=== PATIENT | female | born 1995 | race Caucasian/White ===

== ENCOUNTER 2019-01-04 01:31 | Inpatient (IN) | payer OTHER ==
[2019-01-04] MEDS ORDERED: METHYLERGONOVINE 0.2 MG/ML 1 ML AMP IM PRN (01:55)
[2019-01-04] MEDS ORDERED: LIDOCAINE 0.5% (PF) 5 MG/ML (50 ML SDV) SQ PRN (01:55)
[2019-01-04] MEDS ORDERED: OXYTOCIN 10 UNIT/ML 1 ML VIAL IM PRN (01:55)
[2019-01-04] MEDS ORDERED: CARBOPROST TROMETHAMINE 250 MCG/ML 1 ML AMP IM PRN (01:55)
[2019-01-04] MEDS ORDERED: TERBUTALINE 1 MG/ML VIAL SQ PRN (01:55)
[2019-01-04] MEDS ORDERED: PENICILLIN G POTASSIUM 5,000,000 UNIT in DEXTROSE 5% IN WATER 100 ML IVPB ONE ×2 (02:00)
[2019-01-04] MEDS: LACTATED RINGERS 1,000 ML IV SCH ×3 (02:15→06:04)
[2019-01-04 02:17] LABS: Basophils # (A) 0.1 k/uL (0-0.2); Basophils % (A) 1 %; Eosinophils # (A) 0.2 k/uL (0-0.7); Eosinophils % (A) 1 %; HCT 36.9 % (34.0-46.0); HGB 12.9 gm/dL (11.4-16.0); Lymphocytes # (A) 1.9 k/uL (1.0-4.8); Lymphocytes % (A) 11 %; MCH 33.6 pg (25.0-35.0); MCHC 35.1 g/dL (31.0-37.0); MCV 95.8 fL (80.0-100.0); Monocytes # (A) 1.2 k/uL (0-1.0); Monocytes % (A) 7 %; Neutrophils # (A) 14.9 k/uL (1.3-7.7); Neutrophils % (A) 80 %; Platelet Count 283 k/uL (150-450); RBC 3.85 m/uL (3.80-5.40); RDW 12.4 % (11.5-15.5); WBC 18.5 k/uL (3.8-10.6)
[2019-01-04] MEDS ORDERED: fentaNYL (PF) 50 MCG/ML 5 ML AMP ONE (02:17)
[2019-01-04] MEDS ORDERED: SODIUM CHLORIDE 0.9% 100 ML BAG ONE (02:17)
[2019-01-04] MEDS ORDERED: ROPIVACAINE 5MG/ML 20ML VIAL ONE (02:17)
[2019-01-04 04:15] VITALS: BMI 31.5
[2019-01-04] MEDS ORDERED: diphenhydrAMINE 50 MG/ML 1 ML VIAL IVP PRN ×2 (06:31)
[2019-01-04] MEDS ORDERED: SIMETHICONE 80 MG CHEWABLE PO PRN (06:31)
[2019-01-04] MEDS ORDERED: WITCH HAZEL 1 EACH MED..PAD TOPICAL PRN (06:31)
[2019-01-04] MEDS ORDERED: diphenhydrAMINE 25 MG CAP PO PRN (06:31)
[2019-01-04] MEDS ORDERED: HYDROCORTISONE 2.5% RECTAL CREAM 30 GM TUBE RECTAL PRN (06:31)
[2019-01-04] MEDS ORDERED: LANOLIN CREAM 5 GM TUBE TOPICAL PRN (06:31)
[2019-01-04] MEDS ORDERED: ACETAMINOPHEN TAB 325 MG TAB PO PRN (06:31)
[2019-01-04] MEDS ORDERED: BENZOCAINE/MENTHOL SPRAY 1 GM/SPRAY AEROSOL TOPICAL PRN (06:31)
[2019-01-04] MEDS ORDERED: diphenhydrAMINE 50 MG CAP PO PRN (06:31)
[2019-01-04] MEDS ORDERED: ZOLPIDEM 5 MG TAB PO PRN (06:31)
--- NOTE | 2019-01-04 06:31 | P.PROBDLV ---
Vaginal Delivery Note - . Vaginal Delivery Note: Findings: Male infant in the left occiput anterior position with a nuchal cord 2. Thick terminal meconium. Apgars 7 at 1 minute 8 at 5 minutes. Weight 7 lbs. 5 oz. Intact, three-vessel cord placenta. EBL approximately 150 mL's. Second-degree perineal laceration. Delivery summary: This is a 23-year-old 1 para 0 woman who presented in spontaneous active labor at 38-2/7 weeks' gestation. Upon presentation she was 6+ centimeters dilated and did report leaking of fluid at home. Amnio sure was positive however she had a large bulging bag of membranes that was then artificially ruptured. Thick meconium-stained particulate fluid was noted. Patient's heart tones were category 2 throughout her first stage of labor with overall good variability but occasional episodes of variable decelerations. She received an epidural anesthetic and did progress to complete cervical dilation. She commenced pushing with excellent maternal effort. When she had pushed to she was repositioned, prepped and draped in the modified Zenaida position. With additional maternal effort the head delivered from the left occiput anterior position. Nuchal cord 2 was reduced. The rest the was delivered spontaneously onto the field and the had spontaneous gasp and cry. The nose and mouth were bulb suctioned. The cord was clamped and cut and the was taken to the warmer. The TECHNICAL PUBLICATIONS MANAGER was in attendance for delivery. Apgars were 7 at 1 minute and 8 at 5 minutes and the infant was ultimately taken to the nursery for some grunting and pulse ox in the 80s. The perineum of the patient was inspected and a second-degree laceration was noted. This was infused with lidocaine and repaired with 3-0 Vicryl suture. The rest of the vagina cervix and perineum were inspected no further lacerations were noted. The uterus was massaged and was noted to be firm below the level of the umbilicus. Patient received Pitocin following delivery of the placenta. All counts were correct.
[2019-01-04] MEDS ORDERED: OXYTOCIN 20 UNITS/1000 ML NS 1,000 ML IV SCH (06:45)
[2019-01-04] MEDS: PENICILLIN G POTASSIUM 2,500,000 UNIT in DEXTROSE 5% IN WATER 100 ML IVPB SCH ×2 (07:22)
--- NOTE | 2019-01-04 07:32 | HP ---
HISTORY AND PHYSICAL DATE OF ADMISSION: 01/04/2019. HISTORY: This is a 23-year-old 1, para 0 woman with an estimated due date of 01/14/2019 based on LMP consistent with a 2nd trimester ultrasound. She presents at 38 and 2/7 weeks gestation in spontaneous active labor. She reports the onset of contractions at approximately 11:30 pm with some leakage of clear fluid. On presentation to Labor and Delivery triage, she is found to be 6 cm dilated. AmniSure was positive. However, the nurse reports a large 4 bag palpable in front of the vertex. The patient is known group B strep positive. Her has been otherwise uncomplicated. LABORATORY DATA: Blood type A positive, antibody screen negative, rubella immune, VDRL nonreactive, hepatitis B surface antigen negative, HIV negative, gonorrhea and chlamydia cultures negative. Diabetes screening within normal limits. Group B strep positive. ALLERGY: None. MEDICATIONS: vitamins. PAST MEDICAL HISTORY: None. PAST SURGICAL HISTORY: None. TIPPLE ENGINEER PAST HISTORY: She is a 1. SOCIAL HISTORY: Former smoker. She is single. The father of the baby is not involved. FAMILY HISTORY: Noncontributory. PHYSICAL EXAM: Targeted physical examination is performed on my initial evaluation. The patient is 9 cm dilated with large fore bag which is ruptured. Thick meconium stained fluid is noted. heart tones are category 2 with good variability and intermittent variable appearing decelerations. She is wilfredo spontaneously every 1-3 minutes. ASSESSMENT: A 23-year-old 1 at 38 2/7 weeks gestation with spontaneous active labor. Meconium stained fluid. Group B strep positive. Prophylactic antibiotics have been initiated. status is currently overall reassuring. She has an epidural in place and I anticipate normal spontaneous vaginal delivery. MMODL / IJN: [id number] /
[2019-01-04] MEDS: IBUPROFEN 600 MG TAB PO PRN ×2 (08:06→19:03)
[2019-01-04] MEDS: SENNOSIDES-DOCUSATE SODIUM 1 EACH TAB PO SCH ×2 (19:12→19:24)
[2019-01-05] MEDS: SENNOSIDES-DOCUSATE SODIUM 1 EACH TAB PO SCH ×2 (07:40→20:01)
[2019-01-05 07:57] LABS: Basophils # (A) 0.1 k/uL (0-0.2); Basophils % (A) 1 %; Eosinophils # (A) 0.3 k/uL (0-0.7); Eosinophils % (A) 2 %; HCT 31.8 % (34.0-46.0); Lymphocytes # (A) 2.5 k/uL (1.0-4.8); Lymphocytes % (A) 21 %; MCH 33.9 pg (25.0-35.0); MCHC 34.4 g/dL (31.0-37.0); MCV 98.5 fL (80.0-100.0); Mean Platelet Volume 7.1; Monocytes # (A) 0.8 k/uL (0-1.0); Monocytes % (A) 7 %; Neutrophils # (A) 8.1 k/uL (1.3-7.7); Neutrophils % (A) 68 %; Platelet Count 247 k/uL (150-450); RBC 3.23 m/uL (3.80-5.40); RDW 12.6 % (11.5-15.5); WBC 11.9 k/uL (3.8-10.6)
[2019-01-05] MEDS: LACTATED RINGERS 1,000 ML IV SCH (08:08)
[2019-01-05] MEDS: PENICILLIN G POTASSIUM 2,500,000 UNIT in DEXTROSE 5% IN WATER 100 ML IVPB SCH ×4 (08:08→08:09)
[2019-01-05] MEDS: IBUPROFEN 600 MG TAB PO PRN ×2 (09:45→20:00)
--- NOTE | 2019-01-05 09:54 | P.PNOBGVD ---
Subjective - Subjective Principal diagnosis: PPD 1 Interval history: Pt ti s doing well . she is ambulating and voiding without difficulty, she notes lochia to be moderate, and she is pumping as her infant is in the special care nursery. she denies pain and states she is doing well. Objective - Latest Vital Signs Latest vital signs: Vital Signs Temp Pulse Resp BP 01/05/19 07:45 97.9 F 83 18 108/59 01/05/19 00:00 98.2 F 80 16 121/85 01/04/19 19:30 98.2 F 88 16 130/76 01/04/19 16:00 98.2 F 82 16 108/64 01/04/19 12:30 97.7 F 85 16 124/74 Intake and Output 01/04/19 01/05/19 01/05/19 22:59 06:59 14:59 Other: Voiding Method Toilet # Voids 1 2 - Exam Abdomen: Present: normal appearance, soft Uterus: Present: normal, firm - Labs Labs: Abnormal Lab Results - Last 24 Hours (Table) 01/05/19 Range/Units 06:20 WBC 11.9 H (3.8-10.6) k/uL RBC 3.23 L (3.80-5.40) m/uL Hgb 11.0 L (11.4-16.0) gm/dL Hct 31.8 L (34.0-46.0) % Neutrophils # 8.1 H (1.3-7.7) k/uL Assessment and Plan (1) Term Current Visit: Yes Status: Acute Code(s): Z34.90 - ENCNTR FOR SUPRVSN OF N ORMAL , UNSP, UNSP TRIMESTER SNOMED Code(s): 69760688 (2) Meconium stained amniotic fluid, delivered, current hospitalization Current Visit: Yes Status: Acute Code(s): O77.0 - LABOR AND DELIVERY COMPLICATED BY MECONIUM IN AMNIOTIC FLUID SNOMED Code(s): 230278472 (3) Status post vaginal delivery Current Visit: Yes Status: Acute Code(s): NEE7815 - SNOMED Code(s): 113737893 Plan: plan to continue routine PP care, and anticipate discharge home tomorrow.
[2019-01-05 23:50] VITALS: RESP 16
[2019-01-06] MEDS: IBUPROFEN 600 MG TAB PO PRN ×2 (06:25→18:20)
[2019-01-06] MEDS: SENNOSIDES-DOCUSATE SODIUM 1 EACH TAB PO SCH (11:46)
--- NOTE | 2019-01-06 13:30 | P.DS ---
Providers Date of admission: 01/04/19 01:47 Expected date of discharge: 01/06/19 Attending physician: Luciana Lombardo Primary care physician: Luciana Lombardo - Discharge Diagnosis(es) (1) Term Current Visit: Yes Status: Acute (2) Meconium stained amniotic fluid, delivered, current hospitalization Current Visit: Yes Status: Acute (3) Status post vaginal delivery Current Visit: Yes Status: Acute Hospital Course: This is a pleasant 23-year-old 1 para 000 that presented to labor and delivery at 38-2/7 weeks with complaints of regular painful contractions. Patient was admitted to labor and delivery and antibiotics were started. Patient had spontaneous rupture of membranes at 0115 thick meconium was noted. Patient became uncomfortable eventually getting an epidural. Patient pressed to complete began pushing and had a normal spontaneous vaginal delivery of a viable male infant at 554, weight of 7 lbs. 8 oz. with Apgars of 7 and 8 at one and 5 minutes respectively. Patient was noted to have some respiratory distress therefore was taken to the special care nursery. A second-degree midline laceration was noted after delivery and this was repaired in the usual fashion. Patient's post course has been uneventful. On this day #2 she is ambulating and voiding without difficulty. She is tolerating a regular diet without nausea or vomiting. She states she is feeling well and ready for discharge home. Of note the is to stay additional days here in the special care nursery. Patient Condition at Discharge: Good Plan - Discharge Summary New Discharge Prescriptions: No Action Pnv No.95/Ferrous Fum/Folic AC [ Multivitamin Tablet] 1 tab PO DAILY Discharge Medication List Pnv No.95/Ferrous Fum/Folic AC [ Multivitamin Tablet] 1 tab PO DAILY 01/04/19 [History] Follow up Appointment(s)/Referral(s): Luciana Lombardo DO [Primary Care Provider] - 1 Week Patient Instructions/Handouts: Vaginal Delivery (GEN), Vaginal Delivery (DC) Discharge Disposition: HOME SELF-CARE
[2019-01-06 18:54] VITALS: BP 127/87; PULSE 86; TEMP 98.4
== END 2019-01-06 20:00 | disposition home or self-care (01) | DRG 807 ==
LOC: FBPOP 01:31 → 4FBP 01:47
PROVIDERS: ADMIT Obstetrics & Gynecology; ATTEND Obstetrics & Gynecology Obstetrics
PROC: 10E0XZZ Delivery of Products of Conception, External Approach (ICD-10-PCS; principal; 2019-01-04)
PROC: 0KQM0ZZ Repair Perineum Muscle, Open Approach (ICD-10-PCS; 2019-01-04)
PROC: 00HU33Z Insertion of Infusion Device into Spinal Canal, Percutaneous Approach (ICD-10-PCS; 2019-01-04)
PROC: 3E0R3BZ Introduction of Anesthetic Agent into Spinal Canal, Percutaneous Approach (ICD-10-PCS; 2019-01-04)
DX: O69.81X0 Labor and delivery complicated by cord around neck, without compression, not applicable or unspecified (principal); Z37.0 Single live birth; O77.0 Labor and delivery complicated by meconium in amniotic fluid; O99.824 Streptococcus B carrier state complicating childbirth; O76 Abnormality in fetal heart rate and rhythm complicating labor and delivery; O70.1 Second degree perineal laceration during delivery; O99.62 Diseases of the digestive system complicating childbirth; K21.9 Gastro-esophageal reflux disease without esophagitis; Z3A.38 38 weeks gestation of pregnancy; Z87.891 Personal history of nicotine dependence
CPT/HCPCS: 59025; 84112; 85025; 86850; 86900; 86901; 88307; 99213

== ENCOUNTER 2020-05-28 11:58 | Inpatient (IN) | payer OTHER ==
[2020-05-28] MEDS ORDERED: KETOROLAC 15 MG/ML 1 ML VIAL IVP STA (12:26)
[2020-05-28] MEDS ORDERED: SODIUM CHLORIDE 0.9% 1,000 ML IV STA (12:26)
[2020-05-28] MEDS ORDERED: ONDANSETRON 4 MG/2 ML VIAL IVP STA (12:26)
[2020-05-28 12:42] LABS: Basophils # (A) 0.1 k/uL (0-0.2); Basophils % (A) 1 %; Eosinophils # (A) 0.2 k/uL (0-0.7); Eosinophils % (A) 2 %; HCT 45.7 % (34.0-46.0); HGB 15.6 gm/dL (11.4-16.0); Lymphocytes # (A) 1.1 k/uL (1.0-4.8); Lymphocytes % (A) 11 %; MCH 33.3 pg (25.0-35.0); MCHC 34.1 g/dL (31.0-37.0); MCV 97.6 fL (80.0-100.0); Mean Platelet Volume 6.5; Monocytes # (A) 0.6 k/uL (0-1.0); Monocytes % (A) 6 %; Neutrophils # (A) 7.8 k/uL (1.3-7.7); Neutrophils % (A) 80 %; Platelet Count 328 k/uL (150-450); RBC 4.68 m/uL (3.80-5.40); RDW 12.2 % (11.5-15.5); WBC 9.7 k/uL (3.8-10.6)
[2020-05-28 12:51] LABS: ALT 640 U/L (4-34); African American GFR (CKD) >90 (>60 ml/min/1.73 sqM); Albumin 4.7 g/dL (3.5-5.0); Alkaline Phosphatase 130 U/L (38-126); Anion Gap 7 mmol/L; Blood Urea Nitrogen 10 mg/dL (7-17); Calcium 10.1 mg/dL (8.4-10.2); Carbon Dioxide 29 mmol/L (22-30); Chloride 104 mmol/L (98-107); Glucose 97 mg/dL (74-99); Lipase 309 U/L (23-300); Non-African American GFR(CKD) >90 (>60 ml/min/1.73 sqM); Potassium 4.3 mmol/L (3.5-5.1); Sodium 140 mmol/L (137-145); Total Bilirubin 2.8 mg/dL (0.2-1.3)
[2020-05-28 13:36] LABS: AST 1087 U/L (14-36)
--- NOTE | 2020-05-28 14:05 | US ---
EXAMINATION TYPE: US gallbladder DATE OF EXAM: 05/28/2020 COMPARISON: NONE CLINICAL HISTORY: abd pain. RUQ pain and N/V x 1 day EXAM MEASUREMENTS: Liver Length: 15.8 cm Gallbladder Wall: 0.2 cm CBD: 0.9 cm Right Kidney: 10.1 x 4.1 x 5.2 cm Pancreas: visualized portions wnl, tail obscured by overlying midline bowel gas Liver: wnl Gallbladder: borderline hydropic, wall measures wnl, multiple small echogenic foci within neck, no p ericholecystic fluid seen Evidence for sonographic Woody's sign: yes CBD: dilated Right Kidney: wnl IMPRESSION: Distended gallbladder with stones and reported positive sonographic Woody's sign. No significant gal lbladder wall thickening or pericholecystic fluid. Findings are equivocal for acute cholecystitis. 0.9 cm dilated common bile duct.
[2020-05-28 14:10] LABS: Appearance,Urine Cloudy (Clear); Bacteria,Urine Rare /hpf; Bilirubin,Urine 2+ (Negative); Blood,Urine Negative (Negative); Color,Urine Orange; Glucose,Urine (UA) Negative (Negative); Ketones,Urine Negative (Negative); Leukocyte Esterase,Urine Negative (Negative); Mucus,Urine Few /hpf; Nitrite,Urine Negative (Negative); Protein,Urine Trace (Negative); RBC,Urine 2 /hpf (0-5); Specific Gravity,Urine 1.027 (1.001-1.035); Squamous Epithelial Cell,Urine 46 /hpf (0-4); WBC,Urine 2 /hpf (0-5)
[2020-05-28] MEDS ORDERED: ACETAMINOPHEN IV (For NPO) 1,000 MG in EMPTY BAG 1 BAG IVPB STA (14:37)
--- NOTE | 2020-05-28 14:41 | ED ---
Abdominal Pain HPI - General Chief Complaint: Abdominal Pain Stated Complaint: stomach pain Time Seen by Provider: 05/28/20 12:05 Source: patient Mode of arrival: ambulatory Limitations: no limitations - History of Present Illness Initial Comments: 25-year-old previously healthy female presents emergency department with reported epigastric abdominal pain. Patient ate deep-fried fish last night for dinner and began having right upper quadrant abdominal pain. Had a few episodes of nausea with vomiting. Denies hematemesis. No fevers or chills. No sick contacts with similar symptoms. Denies any pain that radiates to her back. No chest pain or shortness of breath. Does admit to similar pain in the past however denies having previous workup. No vaginal bleeding or discharge. Last menstrual cycle was one month ago. Denies dysuria, hematuria or difficulty voiding. No diarrhea or constipation. No other alleviating, precipitating or modifying factors - Related Data Home Medications Medication Instructions Recorded Confirmed No Known Home Medications 05/28/20 05/28/20 Allergies Allergy/AdvReac Type Severity Reaction Status Date / Time No Known Allergies Allergy Verified 05/28/20 13:34 Review of Systems ROS Statement: Those systems with pertinent positive or pertinent negative responses have been documented in the HPI. ROS Other: All systems not noted in ROS Statement are negative. Past Medical History Past Medical History: No Reported History History of Any Multi-Drug Resistant Organisms: None Reported Past Surgical History: No Surgical Hx Reported Past Anesthesia/Blood Transfusion Reactions: No Reported Reaction Past Psychological History: No Psychological Hx Reported Smoking Status: Current every day smoker Past Alcohol Use History: Occasional Past Drug Use History: None Reported - Past Family History Mother Family Medical History: Asthma Father Family Medical History: Cancer General Exam Limitations: no limitations Course Vital Signs 05/28/20 05/28/20 05/28/20 12:03 13:04 13:50 Temperature 98.5 F Pulse Rate 83 87 Respiratory 20 18 18 Rate Blood Pressure 123/77 125/77 O2 Sat by Pulse 100 100 Oximetry 05/28/20 05/28/20 14:00 15:00 Temperature Pulse Rate 87 Respiratory 18 18 Rate Blood Pressure 108/62 O2 Sat by Pulse 100 100 Oximetry Medical Decision Making - Medical Decision Making Upon arrival patient is placed in room 19. A thorough history and physical exam was performed. IV is established. Patient was given a liter bolus of normal saline, 4 mg of Zofran and 15 mg of Toradol. Laboratory studies were conducted an echo Doppler ultrasound is performed. Laboratory studies are reviewed and demonstrate elevated liver enzymes. Ultrasound was performed which demonstrates distended call bladder with stones. 0.9 cm dilated bile duct. Because of the patient's test results, there is concern for choledocholithiasis. I do speak with Dr. Izquierdo who states that the patient will be admitted for her evaluation. I spoke with Dr. Randolph who accepted admission for the patient. She will be made nothing by mouth at midnight. Patient agreed to this treatment plan and she is currently awaiting a bed on the floor - Lab Data Result diagrams: 05/28/20 12:39 05/28/20 12:39 Lab Results 05/28/20 05/28/20 05/28/20 Range/Units 12:39 12:39 13:43 WBC 9.7 (3.8-10.6) k/uL RBC 4.68 (3.80-5.40) m/uL Hgb 15.6 (11.4-16.0) gm/dL Hct 45.7 (34.0-46.0) % MCV 97.6 (80.0-100.0) fL MCH 33.3 (25.0-35.0) pg MCHC 34.1 (31.0-37.0) g/dL RDW 12.2 (11.5-15.5) % Plt Count 328 (150-450) k/uL MPV 6.5 Neutrophils % 80 % Lymphocytes % 11 % Monocytes % 6 % Eosinophils % 2 % Basophils % 1 % Neutrophils # 7.8 H (1.3-7.7) k/uL Lymphocytes # 1.1 (1.0-4.8) k/uL Monocytes # 0.6 (0-1.0) k/uL Eosinophils # 0.2 (0-0.7) k/uL Basophils # 0.1 (0-0.2) k/uL Sodium 140 (137-145) mmol/L Potassium 4.3 (3.5-5.1) mmol/L Chloride 104 (98-107) mmol/L Carbon Dioxide 29 (22-30) mmol/L Anion Gap 7 mmol/L BUN 10 (7-17) mg/dL Creatinine 0.75 (0.52-1.04) mg/dL Est GFR (CKD-EPI)AfAm >90 (>60 ml/min/1.73 sqM) Est GFR (CKD-EPI)NonAf >90 (>60 ml/min/1.73 sqM) Glucose 97 (74-99) mg/dL Calcium 10.1 (8.4-10.2) mg/dL Total Bilirubin 2.8 H (0.2-1.3) mg/dL AST 1087 H (14-36) U/L ALT 640 H (4-34) U/L Alkaline Phosphatase 130 H (38-126) U/L Total Protein 8.0 (6.3-8.2) g/dL Albumin 4.7 (3.5-5.0) g/dL Lipase 309 H (23-300) U/L Urine Color [place] Urine Appearance Cloudy H (Clear) Urine pH 7.0 (5.0-8.0) Ur Specific [place] 1.027 (1.001-1.035) Urine Protein Trace H (Negative) Urine Glucose (UA) Negative (Negative) Urine Ketones Negative (Negative) Urine Blood Negative (Negative) Urine Nitrite Negative (Negative) Urine Bilirubin 2+ H (Negative) Urine Urobilinogen 4.0 (<2.0) mg/dL Ur Leukocyte Esterase Negative (Negative) Urine RBC 2 (0-5) /hpf Urine WBC 2 (0-5) /hpf Ur Squamous Epith Cells 46 H (0-4) /hpf Urine Bacteria Rare H (None) /hpf Urine Mucus Few H (None) /hpf Urine HCG, Qual (Not Detectd) 05/28/20 Range/Units 13:43 WBC (3.8-10.6) k/uL RBC (3.80-5.40) m/uL Hgb (11.4-16.0) gm/dL Hct (34.0-46.0) % MCV (80.0-100.0) fL MCH (25.0-35.0) pg MCHC (31.0-37.0) g/dL RDW (11.5-15.5) % Plt Count (150-450) k/uL MPV Neutrophils % % Lymphocytes % % Monocytes % % Eosinophils % % Basophils % % Neutrophils # (1.3-7.7) k/uL Lymphocytes # (1.0-4.8) k/uL Monocytes # (0-1.0) k/uL Eosinophils # (0-0.7) k/uL Basophils # (0-0.2) k/uL Sodium (137-145) mmol/L Potassium (3.5-5.1) mmol/L Chloride (98-107) mmol/L Carbon Dioxide (22-30) mmol/L Anion Gap mmol/L BUN (7-17) mg/dL Creatinine (0.52-1.04) mg/dL Est GFR (CKD-EPI)AfAm (>60 ml/min/1.73 sqM) Est GFR (CKD-EPI)NonAf (>60 ml/min/1.73 sqM) Glucose (74-99) mg/dL Calcium (8.4-10.2) mg/dL Total Bilirubin (0.2-1.3) mg/dL AST (14-36) U/L ALT (4-34) U/L Alkaline Phosphatase (38-126) U/L Total Protein (6.3-8.2) g/dL Albumin (3.5-5.0) g/dL Lipase (23-300) U/L Urine Color Urine Appearance (Clear) Urine pH (5.0-8.0) Ur Specific [place] (1.001-1.035) Urine Protein (Negative) Urine Glucose (UA) (Negative) Urine Ketones (Negative) Urine Blood (Negative) Urine Nitrite (Negative) Urine Bilirubin (Negative) Urine Urobilinogen (<2.0) mg/dL Ur Leukocyte Esterase (Negative) Urine RBC (0-5) /hpf Urine WBC (0-5) /hpf Ur Squamous Epith Cells (0-4) /hpf Urine Bacteria (None) /hpf Urine Mucus (None) /hpf Urine HCG, Qual Not Detected (Not Detectd) Disposition Clinical Impression: Abdominal pain, Transaminitis, Choledocholithiasis, Cholelithiasis Disposition: ADMITTED IP TO THIS [facility] Condition: Serious Is patient prescribed a controlled substance at d/c from ED?: No Decision to Admit Reason: Admit from EC Decision Date: 05/28/20 Decision Time: 14:40
[2020-05-28] MEDS ORDERED: ONDANSETRON 4 MG/2 ML VIAL IVP PRN (14:46)
[2020-05-28] MEDS ORDERED: KETOROLAC 15 MG/ML 1 ML VIAL IVP PRN (14:46)
[2020-05-28] MEDS ORDERED: NALOXONE 0.4 MG/ML 1 ML VIAL IV PRN (14:46)
[2020-05-28] MEDS: SODIUM CHLORIDE 0.9% 1,000 ML IV SCH (15:16)
[2020-05-28] MEDS ORDERED: ACETAMINOPHEN TAB 500 MG TAB PO PRN (15:35)
[2020-05-28] MEDS ORDERED: HYDROmorphone 0.5 MG/0.5 ML SYRINGE IVP PRN (15:35)
[2020-05-28] MEDS ORDERED: ALPRAZolam 0.25 MG TAB PO PRN (15:35)
[2020-05-28] MEDS ORDERED: TEMAZEPAM 15 MG CAP PO PRN (15:35)
[2020-05-28] MEDS: IOPAMIDOL CONTRAST (ORAL USE) VIAL PO PRN ×2 (18:15→18:44)
[2020-05-28] MEDS: NICOTINE 14MG/24HR PATCH TRANSDERM SCH (18:47)
[2020-05-28 19:00] LABS: Appearance,Urine Cloudy (Clear); Bilirubin,Urine 2+ (Negative); Blood,Urine Negative (Negative); Color,Urine Orange; Glucose,Urine (UA) Negative (Negative); Ketones,Urine Negative (Negative); Leukocyte Esterase,Urine Negative (Negative); Mucus,Urine Many /hpf; Nitrite,Urine Negative (Negative); Protein,Urine 1+ (Negative); Specific Gravity,Urine 1.044 (1.001-1.035); Squamous Epithelial Cell,Urine 16 /hpf (0-4); WBC,Urine 2 /hpf (0-5)
[2020-05-28] MEDS: HYDROcodone/APAP 5-325MG 1 EACH TAB PO PRN (19:41)
[2020-05-28] MEDS: HEPARIN SODIUM,PORCINE 5,000 UNIT/ML 1 ML VIAL SQ SCH (19:42)
--- NOTE | 2020-05-28 20:05 | CT ---
EXAMINATION TYPE: CT abdomen pelvis wo con DATE OF EXAM: 05/28/2020 COMPARISON: Same-day ultrasound. HISTORY: abdominal pain CT DLP: 389.3 mGycm Automated exposure control for dose reduction was used. TECHNIQUE: Helical acquisition of images was performed from the lung bases through the pelvis. FINDINGS: LUNG BASES: No significant abnormality is appreciated. LIVER/GB: Gallstone at the gallbladder neck. No significant gallbladder wall thickening or pericholec ystic fluid. No significant biliary ductal dilatation. PANCREAS: No significant abnormality is seen. SPLEEN: No significant abnormality is seen. ADRENALS: No significant abnormality is seen. KIDNEYS: No significant abnormality is seen. FREE AIR: No free air is visualized RETROPERITONEAL ADENOPATHY: None visualized REPRODUCTIVE ORGANS: No acute abnormality is seen. Retroflexed uterus is seen. URINARY BLADDER: No significant abnormality is seen. PELVIC ADENOPATHY: None visualized. OSSEOUS STRUCTURES: No significant abnormality is seen. BOWEL: No significant abnormality is seen. OTHER: None. IMPRESSION: GALLSTONE IN THE GALLBLADDER NECK REGION WITHOUT SIGNIFICANT FINDINGS TO SUGGEST ACUTE CHOLECYSTITIS. NO SIGNIFICANT BILIARY DUCTAL DILATATION. PROMINENT COMMON BILE DUCT SEEN ON ULTRASOUND, MOST LIK JENNIFER PROJECTIONAL ARTIFACT.
--- NOTE | 2020-05-28 20:21 | HP ---
HISTORY AND PHYSICAL DATE OF SERVICE: 05/28/2020. CHIEF COMPLAINT: Abdominal pain. HISTORY OF PRESENT ILLNESS: This 25-year-old woman with a past medical history of no significant medical issues, being followed by Dr. Valentine in the outpatient setting, is complaining of abdominal pain. The pain began last night with dinner in the right upper quadrant and moved to the epigastric area. There were a few episodes of nausea and vomiting. The patient came to [facility] and was admitted for further evaluation and treatment. The evaluation in the ER today showed elevated bilirubin and AST and ALT and alkaline phosphatase and lipase also elevated. UA showed some bilirubin. The patient also had a gallbladder ultrasound which showed the possibility of distended gallbladder and stones and sonographic Woody sign was also noted. No significant gallbladder wall thickening was noted. There is no history of fever, rigors. No history of headache, loss of consciousness of seizures. PAST MEDICAL HISTORY: No significant cardiovascular illness. MEDICATIONS: None. ALLERGIES: None. FAMILY HISTORY: No history of heart disease. History of asthma in the family. SOCIAL HISTORY: History of smoking. Occasional alcohol. REVIEW OF SYSTEMS: ENT: No diminished vision. No diminished hearing. CARDIOVASCULAR: No angina. RESPIRATION: No cough. No hemoptysis. GI: As mentioned earlier. no dysuria. NERVOUS SYSTEM: No numbness, weakness. ALLERGY/IMMUNOLOGY: No asthma or hayfever. MUSCULOSKELETAL: History of DJD. NEUROLOGY: Negative. HEMATOLOGY/ONCOLOGY: No history of anemia. ENDOCRINE: No history of diabetes or hypothyroidism. CONSTITUTIONAL: As mentioned earlier. DERMATOLOGY: Negative. RHEUMATOLOGY: Negative. PSYCHIATRY is negative. PHYSICAL EXAMINATION: Alert and oriented times three. Pulse 87. Blood pressure 108/62, respiration 18, temperature 98.5. Pulse ox 100 percent on room air. HEENT: Conjunctivae normal. Oral mucosa moist. NECK is no jugular venous distention. No carotid bruit. No lymph node enlargement. CARDIOVASCULAR system: S1, S2. No S3, no S4. RESPIRATORY: Breath sounds diminished in the bases. No rhonchi. No crackles. ABDOMEN: Soft. Mild diffuse tenderness in the epigastrium. No mass palpable. LEGS: No edema. No swelling. NERVOUS SYSTEM: Higher functions as mentioned earlier. Moves all 4 limbs. No focal motor or sensory deficits. LYMPHATICS: No lymph nodes palpable in the neck, axillae or groin. SKIN: No ulcers, rashes or bleeding. JOINTS: No active deforming arthropathy. LABS: CBC within normal limits. Bilirubin 2.8, AST, ALT. Other labs are noted. ASSESSMENT: 1. Abdominal pain possibly acute cholelithiasis, rule out acute cholecystitis. 2. Possible mild gallstone pancreatitis. 3. Possible choledocholithiasis. 4. History of nicotine dependence. 5. FULL CODE. CONDITION: In this 25-year-old woman who presented with multiple complex medical issues, at this time, I recommend to continue current management, symptomatic treatment. Repeat labs in the morning. I would also recommend a CT scan of the abdomen and pelvis. Gastroenterology and surgery evaluation for possible ERCP to rule out the possibly choledocholithiasis. The prognosis guarded because of multiple complex medical issues. See orders for details. Further recommendations to follow. A copy of dictation being forwarded to Dr. Valentine, who is the primary physician. MMODL / EVERN: [id number] /
[2020-05-29] MEDS: SODIUM CHLORIDE 0.9% 1,000 ML IV SCH ×3 (01:35→20:40)
[2020-05-29 08:22] LABS: African American GFR (CKD) >90 (>60 ml/min/1.73 sqM); Albumin 3.4 g/dL (3.5-5.0); Alkaline Phosphatase 144 U/L (38-126); Amylase 32 U/L (30-110); Anion Gap 2 mmol/L; Blood Urea Nitrogen 5 mg/dL (7-17); Calcium 8.9 mg/dL (8.4-10.2); Carbon Dioxide 28 mmol/L (22-30); Chloride 108 mmol/L (98-107); Glucose 97 mg/dL (74-99); Lipase 129 U/L (23-300); Non-African American GFR(CKD) >90 (>60 ml/min/1.73 sqM); Potassium 5.3 mmol/L (3.5-5.1); Sodium 138 mmol/L (137-145); Total Bilirubin 2.9 mg/dL (0.2-1.3); Total Protein 6.2 g/dL (6.3-8.2)
[2020-05-29 08:30] LABS: Basophils % (A) 1 %; Eosinophils # (A) 0.3 k/uL (0-0.7); Eosinophils % (A) 5 %; HCT 40.2 % (34.0-46.0); HGB 13.2 gm/dL (11.4-16.0); Lymphocytes # (A) 1.5 k/uL (1.0-4.8); Lymphocytes % (A) 30 %; MCH 32.5 pg (25.0-35.0); MCHC 32.8 g/dL (31.0-37.0); MCV 99.1 fL (80.0-100.0); Mean Platelet Volume 6.8; Monocytes # (A) 0.3 k/uL (0-1.0); Monocytes % (A) 7 %; Neutrophils # (A) 2.7 k/uL (1.3-7.7); Neutrophils % (A) 56 %; Platelet Count 262 k/uL (150-450); RBC 4.05 m/uL (3.80-5.40); RDW 12.7 % (11.5-15.5); WBC 4.9 k/uL (3.8-10.6)
[2020-05-29 08:33] LABS: ALT 1192 U/L (4-34); AST 1016 U/L (14-36)
[2020-05-29] MEDS: PANTOPRAZOLE 40 MG/10 ML VIAL IVP SCH (08:34)
[2020-05-29] MEDS: NICOTINE 14MG/24HR PATCH TRANSDERM SCH (08:34)
[2020-05-29] MEDS: HEPARIN SODIUM,PORCINE 5,000 UNIT/ML 1 ML VIAL SQ SCH ×2 (08:34→21:22)
--- NOTE | 2020-05-29 14:03 | P.GSCN ---
History of Present Illness Consult date: 05/29/20 Reason for Consult: Right upper quadrant pain History of present illness: This is a 25-year-old female who since emergency room with right quadrant pain. Patient's found have elevated LFTs consistent with choledocholithiasis. Patient is currently pain-free. Past Medical History Past Medical History: No Reported History History of Any Multi-Drug Resistant Organisms: None Reported Past Surgical History: No Surgical Hx Reported Past Anesthesia/Blood Transfusion Reactions: No Reported Reaction Past Psychological History: No Psychological Hx Reported Smoking Status: Current every day smoker Past Alcohol Use History: Occasional Past Drug Use History: None Reported - Past Family History Mother Family Medical History: Asthma Father Family Medical History: Cancer Medications and Allergies Home Medications Medication Instructions Recorded Confirmed Type No Known Home Medications 05/28/20 05/28/20 History Allergies Allergy/AdvReac Type Severity Reaction Status Date / Time No Known Allergies Allergy Verified 05/28/20 16:39 Surgical - Exam Vital Signs Temp Pulse Resp BP Pulse Ox 98.5 F 83 20 123/77 100 05/28/20 12:03 05/28/20 12:03 05/28/20 12:03 05/28/20 12:03 05/28/20 12:03 - General well developed, well nourished, no distress - Eyes PERRL - ENT normal pinna, normal nares, normal mucosa - Neck no masses - Respiratory normal expansion - Cardiovascular Rhythm: regular - Abdomen Mild right upper quadrant tenderness Abdomen: soft Results - Labs 05/29/20 07:09 05/29/20 07:09 Abnormal Lab Results - Last 24 Hours (Table) 05/28/20 05/28/20 05/29/20 Range/Units 13:43 18:50 07:09 Potassium 5.3 H (3.5-5.1) mmol/L Chloride 108 H (98-107) mmol/L BUN 5 L (7-17) mg/dL Total Bilirubin 2.9 H (0.2-1.3) mg/dL AST 1016 H (14-36) U/L ALT 1192 H (4-34) U/L Alkaline Phosphatase 144 H (38-126) U/L Total Protein 6.2 L (6.3-8.2) g/dL Albumin 3.4 L (3.5-5.0) g/dL Urine Appearance Cloudy H Cloudy H (Clear) Ur Specific [place] 1.044 H (1.001-1.035) Urine Protein Trace H 1+ H (Negative) Urine Bilirubin 2+ H 2+ H (Negative) Ur Squamous Epith Cells 46 H 16 H (0-4) /hpf Urine Bacteria Rare H (None) /hpf Urine Mucus Few H Many H (None) /hpf Diabetes panel 05/29/20 Range/Units 07:09 Sodium 138 (137-145) mmol/L Potassium 5.3 H (3.5-5.1) mmol/L Chloride 108 H (98-107) mmol/L Carbon Dioxide 28 (22-30) mmol/L BUN 5 L (7-17) mg/dL Creatinine 0.71 (0.52-1.04) mg/dL Glucose 97 (74-99) mg/dL Calcium 8.9 (8.4-10.2) mg/dL AST 1016 H (14-36) U/L ALT 1192 H (4-34) U/L Alkaline Phosphatase 144 H (38-126) U/L Total Protein 6.2 L (6.3-8.2) g/dL Albumin 3.4 L (3.5-5.0) g/dL Calcium panel 05/29/20 Range/Units 07:09 Calcium 8.9 (8.4-10.2) mg/dL Albumin 3.4 L (3.5-5.0) g/dL Pituitary panel 05/29/20 Range/Units 07:09 Sodium 138 (137-145) mmol/L Potassium 5.3 H (3.5-5.1) mmol/L Chloride 108 H (98-107) mmol/L Carbon Dioxide 28 (22-30) mmol/L BUN 5 L (7-17) mg/dL Creatinine 0.71 (0.52-1.04) mg/dL Glucose 97 (74-99) mg/dL Calcium 8.9 (8.4-10.2) mg/dL Adrenal panel 05/29/20 Range/Units 07:09 Sodium 138 (137-145) mmol/L Potassium 5.3 H (3.5-5.1) mmol/L Chloride 108 H (98-107) mmol/L Carbon Dioxide 28 (22-30) mmol/L BUN 5 L (7-17) mg/dL Creatinine 0.71 (0.52-1.04) mg/dL Glucose 97 (74-99) mg/dL Calcium 8.9 (8.4-10.2) mg/dL Total Bilirubin 2.9 H (0.2-1.3) mg/dL AST 1016 H (14-36) U/L ALT 1192 H (4-34) U/L Alkaline Phosphatase 144 H (38-126) U/L Total Protein 6.2 L (6.3-8.2) g/dL Albumin 3.4 L (3.5-5.0) g/dL - Imaging US - abdomen: report reviewed (Cholelithiasis) Assessment and Plan Assessment: Cholelithiasis. We'll perform laparoscopic cholecystectomy. Patient will undergo ERCP tomorrow.
--- NOTE | 2020-05-29 16:53 | PN ---
PROGRESS NOTE DATE OF SERVICE: 05/29/2020 This is a 25-year-old woman who was admitted with abdominal pain and also had possible choledocholithiasis. Dr. Mann is planning ERCP tomorrow. Dr. Sousa has seen the patient from the surgical point of view. Recommends laparoscopic cholecystectomy. No chest pain. No palpitations. No fever. PHYSICAL EXAMINATION: GENERAL: Alert and oriented x3. VITAL SIGNS: Pulse 62, blood pressure 123/74, respiration 18, temperature 97.4, pulse ox 100% on room air. HEENT: Conjunctivae normal. Oral mucosa moist. NECK: No jugular venous distention. No carotid bruits. No lymph node enlargement. RESPIRATORY: Breath sounds diminished at the bases. No rhonchi, no crackles. HEART: S1 and S2, muffled. ABDOMEN: Soft, no tenderness. No masses palpable. EXTREMITIES: No edema, no swelling. NERVOUS: No focal deficits. LABS: CBC within normal limits and total bilirubin is 2.9, AST s1016, ALT is 1192 and alkaline phosphatase is 144. UA noted. COVID-19 is negative. ASSESSMENT: 1. Abdominal pain, possible acute cholelithiasis and rule out acute choledocholithiasis. 2. Possible mild gallstone pancreatitis on admission. 3. Possible choledocholithiasis. 4. History of nicotine dependence. 5. FULL CODE. 6. Elevated bilirubin. 7. Elevated AST, ALT, alkaline phosphatase. 8. Mildly elevated potassium. RECOMMENDATIONS AND DISCUSSION: In this 25-year-old woman who presented with multiple complex medical issues, we will monitor the patient closely. Continue the current management and continue symptomatic treatment.. Otherwise ERCP. Full liquid diet and follow closely with Surgery and as well as Gastroenterology. Guarded prognosis. Further recommendations to follow. MMODL / IJN: [id number] /
--- NOTE | 2020-05-29 17:05 | CONS ---
CONSULTATION DATE OF SERVICE: May. REASON FOR CONSULTATION: Abdominal pain, elevated LFTs and jaundice. HISTORY OF PRESENT ILLNESS: The patient is a 25-year-old pleasant white female with no significant past medical history, admitted to the hospital with acute onset of severe epigastric and right upper quadrant abdominal pain that started 2 days ago. She had a few episodes of nausea, vomiting. She came to the emergency room and was noted to have elevated bilirubin of 2.9 and severe elevation of ALT and AST in the range of 1000. She had ultrasound of the gallbladder done that showed multiple gallstones with distended gallbladder and slight dilation of CBD. Hence we are consulted for possible ERCP. The patient is doing much better today. PAST MEDICAL HISTORY: None. PAST SURGICAL HISTORY: None. MEDICATIONS: At home none. ALLERGIES: None. No known drug allergies. SOCIAL HISTORY: No smoking. No alcohol use. FAMILY HISTORY: Unremarkable, other than mother has asthma. REVIEW OF SYSTEMS: CARDIOPULMONARY: No chest pain or shortness of breath. : No dysuria or hematuria. MUSCULOSKELETAL unremarkable. SKIN unremarkable. ENDOCRINE unremarkable. PSYCHIATRIC unremarkable. NEUROLOGY: Unremarkable. ENT/VISION: Unremarkable. CONSTITUTIONAL: No recent weight loss. No fever, chills, night sweats. PHYSICAL EXAMINATION: Blood pressure is 108/68, pulse rate 74, temperature 97.6. HEENT examination unremarkable. Conjunctivae pink. Sclerae anicteric. Oral cavity, no lesions. NECK: No JVD or lymph node enlargement. CHEST was clear to auscultation. HEART: Regular rate and rhythm. ABDOMEN: Soft. Mild tenderness in the epigastric area. Rest of the abdomen was benign. Bowel sounds are positive. No organomegaly. EXTREMITIES: No pedal edema. NEUROLOGIC: Alert and oriented x3. No focal deficits. LABS: WBC 9.7, hemoglobin 15, platelets normal. T-bilirubin 2.8 and today it is 2.9, AST 1087, ALT 640, alkaline phosphatase 130. Today T- bilirubin 2.9, AST 1016, ALT 1192, alkaline phosphatase 144. Wright virus PCR is negative. CT of the abdomen and pelvis done yesterday showed evidence of gallstones but no significant biliary dilation. Ultrasound showed CBD measuring 9 mm and multiple gallstones. IMPRESSION: This is a lady who presents to the hospital with acute onset of severe epigastric and right upper quadrant abdominal pain and noted to have elevated LFTs and jaundice and ultrasound and CT scan showed multiple gallstones with mild dilation of CBD measuring 9 mm all consistent with symptomatic gallstones with possible choledocholithiasis. No signs of ascending cholangitis. RECOMMENDATIONS: 1. Start on full liquid diet. 2. N.p.o. after midnight. 3. Proceed with ERCP tomorrow. I discussed with the patient risks, benefits and complications of the procedure and she is agreeable to it. 4. In the meantime, obtain surgical consultation. 5. We will follow with you closely. Thank you for this consultation. MMODL / IJN: [id number] /
[2020-05-29] MEDS: HYDROcodone/APAP 5-325MG 1 EACH TAB PO PRN (17:13)
[2020-05-30] MEDS: HYDROcodone/APAP 5-325MG 1 EACH TAB PO PRN (03:11)
[2020-05-30] MEDS: SODIUM CHLORIDE 0.9% 1,000 ML IV SCH (05:20)
[2020-05-30 05:31] LABS: Basophils % (A) 0 %; Eosinophils # (A) 0.3 k/uL (0-0.7); Eosinophils % (A) 5 %; HCT 38.6 % (34.0-46.0); HGB 12.5 gm/dL (11.4-16.0); Lymphocytes # (A) 1.6 k/uL (1.0-4.8); Lymphocytes % (A) 26 %; MCH 32.1 pg (25.0-35.0); MCHC 32.5 g/dL (31.0-37.0); Mean Platelet Volume 6.7; Monocytes # (A) 0.4 k/uL (0-1.0); Monocytes % (A) 7 %; Neutrophils # (A) 3.6 k/uL (1.3-7.7); Neutrophils % (A) 60 %; Platelet Count 254 k/uL (150-450); RDW 12.5 % (11.5-15.5); WBC 6.1 k/uL (3.8-10.6)
[2020-05-30 05:41] LABS: AST 701 U/L (14-36); African American GFR (CKD) >90 (>60 ml/min/1.73 sqM); Albumin 3.4 g/dL (3.5-5.0); Alkaline Phosphatase 174 U/L (38-126); Amylase 32 U/L (30-110); Anion Gap 7 mmol/L; Blood Urea Nitrogen 4 mg/dL (7-17); Calcium 8.6 mg/dL (8.4-10.2); Carbon Dioxide 24 mmol/L (22-30); Chloride 106 mmol/L (98-107); Glucose 97 mg/dL (74-99); Lipase 113 U/L (23-300); Non-African American GFR(CKD) >90 (>60 ml/min/1.73 sqM); Potassium 4.3 mmol/L (3.5-5.1); Sodium 137 mmol/L (137-145); Total Bilirubin 3.4 mg/dL (0.2-1.3); Total Protein 6.1 g/dL (6.3-8.2)
[2020-05-30 05:50] LABS: ALT 1116 U/L (4-34)
[2020-05-30] MEDS ORDERED: MIDAZOLAM 2 MG/2 ML VIAL IV PRN (07:00)
[2020-05-30] MEDS: NICOTINE 14MG/24HR PATCH TRANSDERM SCH (07:58)
[2020-05-30] MEDS: HEPARIN SODIUM,PORCINE 5,000 UNIT/ML 1 ML VIAL SQ SCH (08:25)
[2020-05-30] MEDS: PANTOPRAZOLE 40 MG/10 ML VIAL IVP SCH (08:25)
--- NOTE | 2020-05-30 11:31 | P.PN ---
Subjective Progress Note Date: 05/30/20 CHIEF COMPLAINT: Right upper quadrant abdominal pain HISTORY OF PRESENT ILLNESS: Patient is followed regards to her abdominal pain. At this time she is pain-free. She denies any nausea or vomiting. She had elevated LFTs consistent with choledocholithiasis. She is scheduled for ERCP today. Afebrile. WBC 6.1 total bili 3.4 AST 701 ALT 1116 PHYSICAL EXAM: VITAL SIGNS: Reviewed. GENERAL: Well-developed in no acute distress. HEENT: No sclera icterus. Extraocular movements grossly intact. Moist buccal mucosa. Head is atraumatic, normocephalic. ABDOMEN: Soft. Nondistended. Mild tenderness with palpation of the right upper quadrant NEUROLOGIC: Alert and oriented. Cranial nerves II through XII grossly intact. ASSESSMENT: 1. Symptomatic cholelithiasis 2. Possible choledocholithiasis PLAN: -Patient is scheduled for ERCP today with GI service -Continue antibiotics -Continue IV fluids -Patient scheduled tentatively for laparoscopic cholecystectomy tomorrow, 05/31/20 Physician Muck Hauler note has been reviewed by physician. Signing provider agrees with the documented findings, assessment, and plan of care. Objective - Vital Signs Vital signs: Vital Signs Temp 97.6 F 05/30/20 08:15 Pulse 70 05/30/20 08:15 Resp 16 05/30/20 08:15 BP 105/61 05/30/20 08:15 Pulse Ox 98 05/30/20 08:15 Intake & Output 05/29/20 05/30/20 05/30/20 18:59 06:59 18:59 Output Total 200 Balance -200 Output: Urine 200 Other: Voiding Method Toilet Toilet Toilet # Voids 2 - Labs CBC & Chem 7: 05/30/20 05:16 05/30/20 05:16 Labs: Abnormal Lab Results - Last 24 Hours (Table) 05/30/20 Range/Units 05:16 BUN 4 L (7-17) mg/dL Total Bilirubin 3.4 H (0.2-1.3) mg/dL AST 701 H (14-36) U/L ALT 1116 H (4-34) U/L Alkaline Phosphatase 174 H (38-126) U/L Total Protein 6.1 L (6.3-8.2) g/dL Albumin 3.4 L (3.5-5.0) g/dL
[2020-05-30] MEDS ORDERED: INDOMETHACIN 50MG SUPPOSITORY RECTAL ONE (13:00)
[2020-05-30] MEDS ORDERED: LEVOFLOXACIN 500MG-D5W PMX 500 MG in DEXTROSE/WATER 1 100ML.BAG IVPB SCH (13:00)
[2020-05-30 13:44] VITALS: RESP 18
[2020-05-30] MEDS ORDERED: IV FLUID CONTINUATION 1,000 ML IV ONE (13:51)
[2020-05-30] MEDS ORDERED: IOPAMIDOL-300 50ML BTL INJ ONE ×2 (13:52→14:15)
[2020-05-30] MEDS ORDERED: PROPOFOL 10 MG/ML 20 ML VIAL IV ONE (13:56)
--- NOTE | 2020-05-30 14:42 | P.PCN ---
Date of Procedure: 05/30/20 Procedure(s) Performed: Brief history: Patient is a 25 year-old pleasant lady scheduled for an ERCP as part of evaluation of abdominal pain and elevated serum transaminases and jaundice for the last 2 days' duration. Ultrasound showed gallstones and mild dilation of common bile measuring 9 mm in diameter. Because of a clinical suspicion for CBD stones she is scheduled for an ERCP today. Procedure performed: ERCP with biliary sphincterotomy, balloon stone extraction and Endo Clip placement Preoperative diagnoses: Epigastric pain/elevated LFTs and jaundice IV sedation per anesthesia: Procedure: After informed consent was obtained from the patient and after the risks benefits and complications including bleeding perforation and pancreatitis explained in detail the patient was brought into the endoscopy unit. The patient was placed in prone position and IV conscious sedation was administered by anesthesia under continuous monitoring. The Olympus side-viewing duodenoscope was then inserted into the mouth and esophagus intubated without any difficulty. The scope was gradually advanced into the stomach and duodenum. The major papilla was identified without any difficulty. Initial cannulation resulted in presentation the common bile duct which measured about 9 mm in diameter with a small filling defect. At this time the catheter was exchanged over a guidewire and a biliary sphincterotomy was performed at 11 o'clock position and was extended to 1 cm. Mild sphincterotomy was being performed there was brisk bleeding identified. I continued the sphincterotomy despite which there was some oozing noted. The sphincterotomy could not be extended any further. At this time sphincterotome was removed and an 8.5 mm balloon was passed over the guidewire into the common bile duct was gently-based inflated and withdrawn and there was one stone seen exiting the ampulla. This maneuver was repeated 2 more times and no other filling defects or stones were noted. At this time and Endo Clip was placed at the site of biliary sphincterotomy with was still some oozing noted. Following the Endo Clip placement the bleeding subsided. Patient tolerated the procedure well. The pancreatic duct was not cannulated during the entire procedure. Impression: Slightly dilated common bile duct with a small filling defect status post biliary sphincterotomy followed by balloon stone extraction as described above Antral duct intentionally not cannulated Bleeding at the sphincterotomy status post Endo Clip placement as described above with good hemostasis Recommendations: The findings of this examination were discussed with the patient . At this time she'll be started on clear liquid diet. We'll monitor her labs closely. Repeat CBC in the morning.
--- NOTE | 2020-05-30 15:01 | FL ---
Fluoroscopy INDICATION: Pain FINDINGS: Fluoroscopy time: 12 seconds. Images obtained: 2. IMPRESSIONS: 1. Documentation of fluoroscopy.
[2020-05-30 15:16] LABS: Basophils % (A) 0 %; Eosinophils # (A) 0.1 k/uL (0-0.7); Eosinophils % (A) 2 %; HCT 41.1 % (34.0-46.0); HGB 13.2 gm/dL (11.4-16.0); Lymphocytes # (A) 1.2 k/uL (1.0-4.8); Lymphocytes % (A) 18 %; MCH 32.5 pg (25.0-35.0); MCHC 32.1 g/dL (31.0-37.0); MCV 101.2 fL (80.0-100.0); Mean Platelet Volume 6.9; Monocytes # (A) 0.3 k/uL (0-1.0); Monocytes % (A) 5 %; Neutrophils # (A) 5.1 k/uL (1.3-7.7); Neutrophils % (A) 74 %; Platelet Count 272 k/uL (150-450); RBC 4.06 m/uL (3.80-5.40); RDW 12.6 % (11.5-15.5); WBC 6.9 k/uL (3.8-10.6)
[2020-05-30] MEDS ORDERED: LIDOCAINE 1% (10MG/ML) FOR IV START INTRADERMA PRN (15:43)
[2020-05-30] MEDS ORDERED: LACTATED RINGERS 1,000 ML IV SCH (15:45)
[2020-05-30 16:47] VITALS: TEMP 98.4
[2020-05-30 16:48] VITALS: BP 119/57; PULSE 76
--- NOTE | 2020-05-30 18:10 | DS ---
DISCHARGE SUMMARY DATE OF SERVICE: 05/30/2020 FINAL DIAGNOSES: 1. Abdominal pain, possibly acute cholelithiasis and acute choledocholithiasis for ERCP. 2. Possible mild gallstone pancreatitis on admission, improved. 3. Possible choledocholithiasis. 4. History of nicotine dependence. 5. Elevated bilirubin. 6. Elevated AST, ALT, alkaline phosphatase. 7. Elevated potassium, improved. 8. FULL CODE. DISCHARGE DISPOSITION: The patient will be discharged in stable condition with guarded prognosis. Patient is extremely keen on going home. The patient will be discharged after ERCP. Full ERCP report is to follow. This 25-year-old woman was admitted with complaints of abdominal pain. Patient was found to have cholelithiasis, choledocholithiasis and possibly some mild pancreatitis. The patient was seen by Dr. Sousa from Surgery, Dr. Mann from Gastroenterology. Dr. Mann is planning ERCP today. Dr. Sousa recommended laparoscopic cholecystectomy, but the patient is extremely keen on going home and the patient reported that she is going to come back for outpatient surgery. Otherwise, LFTs are showing some stability and bilirubin is 3.4, AST 701, ALT is 1116 and alkaline phosphatase is 175. Recommended for follow-up labs with Dr. Mann as well as Dr. Valentine. On exam, vitals are stable. CARDIOVASCULAR SYSTEM: S1, S2 muffled. ABDOMEN: Soft. NERVOUS SYSTEM: No focal deficit. DISCHARGE ADVICE AND MEDICATIONS: 1. Diet is cardiac, soft, low fat. 2. Activity limited until followup. 3. Follow up with Dr. Valentine in 2-3 days. 4. Follow up with Dr. Mann and Dr. Sousa as recommended. Once again, the patient will be discharged in stable condition with guarded prognosis. MMODL / IJN: [id number] /
[2020-05-31] MEDS ORDERED: HYDROmorphone 0.5 MG/0.5 ML SYRINGE IVP PRN (07:00)
[2020-05-31] MEDS ORDERED: fentaNYL (PF) 50 MCG/ML 2 ML AMP IV PRN (07:00)
== END 2020-05-30 16:50 | disposition left against medical advice (07) | DRG 444 ==
LOC: EC 11:58 → 6PED 14:51 → OBSVTOIN 05-30 10:40
PROVIDERS: ADMIT Hospitalist; ATTEND Hospitalist
PROC: 0FC98ZZ Extirpation of Matter from Common Bile Duct, Via Natural or Artificial Opening Endoscopic (ICD-10-PCS; principal; 2020-05-30 09:20)
PROC: 0W3P8ZZ Control Bleeding in Gastrointestinal Tract, Via Natural or Artificial Opening Endoscopic (ICD-10-PCS; principal; 2020-05-30 09:20)
DX: K80.70 Calculus of gallbladder and bile duct without cholecystitis without obstruction (principal); K85.10 Biliary acute pancreatitis without necrosis or infection; K91.61 Intraoperative hemorrhage and hematoma of a digestive system organ or structure complicating a digestive system procedure; K82.8 Other specified diseases of gallbladder; Z82.5 Family history of asthma and other chronic lower respiratory diseases; F17.210 Nicotine dependence, cigarettes, uncomplicated; Z20.822 Contact with and (suspected) exposure to COVID-19
CPT/HCPCS: 36415; 43262; 43277; 74176; 74330; 76705; 80053; 81001; 81025; 82150; 83690; 85025; 87635; 96361; 96374; 96375; 99285

== ENCOUNTER 2020-05-31 07:30 | Day surgery (SDC) | payer OTHER ==
[2020-05-31] MEDS ORDERED: LACTATED RINGERS 1,000 ML IV ONE (08:17)
[2020-05-31] MEDS ORDERED: ONDANSETRON 4 MG/2 ML VIAL ONE (08:19)
[2020-05-31] MEDS ORDERED: ONDANSETRON 4 MG/2 ML VIAL IVP ONE (08:20)
[2020-05-31] MEDS ORDERED: DEXAMETHASONE SOD PHOSPHATE 4 MG/ML 1 ML VIAL IVP ONE (08:20)
[2020-05-31] MEDS ORDERED: HEPARIN SODIUM,PORCINE 5,000 UNIT/ML 1 ML VIAL SQ STA (08:35)
[2020-05-31] MEDS ORDERED: HEPARIN SODIUM,PORCINE 5,000 UNIT/ML 1 ML VIAL ONE (08:37)
--- NOTE | 2020-05-31 08:45 | P.GSHP ---
History of Present Illness H&P Date: 05/31/20 Chief Complaint: Cholelithiasis This is a 25-year-old female who's had complaints of right upper quadrant pain. Patient underwent recent ERCP. She presents today for laparoscopic cholecystectomy for cholelithiasis and cholecystitis. Past Medical History Past Medical History: No Reported History History of Any Multi-Drug Resistant Organisms: None Reported Past Surgical History: No Surgical Hx Reported Past Anesthesia/Blood Transfusion Reactions: No Reported Reaction Past Psychological History: No Psychological Hx Reported Smoking Status: Current every day smoker Past Alcohol Use History: Occasional Past Drug Use History: None Reported - Past Family History Mother Family Medical History: Asthma Father Family Medical History: Cancer Medications and Allergies Home Medications Medication Instructions Recorded Confirmed Type No Known Home Medications 05/28/20 05/31/20 History Allergies Allergy/AdvReac Type Severity Reaction Status Date / Time No Known Allergies Allergy Verified 05/31/20 08:02 Surgical - Exam Vital Signs Temp Pulse Resp BP Pulse Ox 98.3 F 74 18 115/56 97 05/31/20 08:05 05/31/20 08:05 05/31/20 08:05 05/31/20 08:05 05/31/20 08:05 - General well developed, well nourished, no distress - Eyes PERRL - ENT normal pinna - Neck no masses - Respiratory normal expansion - Cardiovascular Rhythm: regular - Abdomen Abdomen: soft, non tender Assessment and Plan Assessment: Cholelithiasis Cholecystitis We'll perform laparoscopic cholecystectomy
[2020-05-31] MEDS ORDERED: KETOROLAC 15 MG/ML 1 ML VIAL ONE (09:02)
[2020-05-31] MEDS ORDERED: SUCCINYLCHOLINE CHLORIDE 100 MG/5 ML SYR IV ONE (09:02)
[2020-05-31] MEDS ORDERED: MIDAZOLAM 2 MG/2 ML VIAL ONE (09:02)
[2020-05-31] MEDS ORDERED: LIDOCAINE 1% INJ 10MG/ML (20 ML MDV) ONE (09:02)
[2020-05-31] MEDS ORDERED: PROPOFOL 10 MG/ML 20 ML VIAL IV ONE (09:02)
[2020-05-31] MEDS ORDERED: ROCURONIUM 10 MG/ML (5 ML VIAL) IV ONE (09:02)
[2020-05-31] MEDS ORDERED: fentaNYL (PF) 50 MCG/ML 2 ML AMP ONE (09:02)
[2020-05-31] MEDS ORDERED: NEOSTIGMINE 1 MG/ML 10 ML VIAL ONE (09:02)
[2020-05-31] MEDS ORDERED: GLYCOPYRROLATE 0.2 MG/ML 2 ML VIAL ONE (09:02)
[2020-05-31] MEDS ORDERED: BUPIVACAIN-EPI 0.5%-1:200,000 30 ML VIAL SQ ONE (09:25)
--- NOTE | 2020-05-31 09:45 | P.OP ---
Date of Procedure: 05/31/20 Preoperative Diagnosis: Cholecystitis Postoperative Diagnosis: Cholecystitis Procedure(s) Performed: Laparoscopic cholecystectomy Anesthesia: SILVIA Surgeon: Manuel Sousa Estimated Blood Loss (ml): 5 Pathology: other (Gallbladder) Condition: stable Disposition: PACU Description of Procedure: The patient was placed on the operating table. The patient received a general endotracheal tube anesthesia. The patients abdomen was prepped and draped in the usual sterile fashion. Through an infraumbilical stab incision, the fascia of the anterior abdominal wall was grasped with a pair of Kochers and then the Veress needle was placed in the peritoneal cavity. Position of the Veress needle was confirmed with positive drop test. The abdomen was then insufflated. After adequate insufflation, the 10 mm trocar was placed in the peritoneal cavity. Following this the laparoscope was placed in the peritoneal cavity. The patient was placed in the head-up, right side up position and then a 5 mm trocar was placed in the right lateral and right subcostal position under direct visualization. A 8 mm trocar was placed in the epigastric position. The gallbladder was grasped in the fundus and infundibulum. Traction on the gallbladder was placed in the lateral and the cephalad positions. The triangle of Calot was visualized.. The cystic duct was bluntly dissected until the union of the cystic duct and common bile duct was seen. A critical view of safety was achieved. The cystic duct was then divided and sealed with the Harmonic scissors. A PDS Endoloop was then placed throughout the cystic duct stump. The cystic artery divided and sealed with the Harmonic scissors. The gallbladder was then removed from the liver bed using Harmonic scissors. The gallbladder was then extracted through the epigastric port site. Operative field was checked for any bleeding spots and Harmonic scissors was used to coagulate the liver bed. The abdomen was irrigated. The trocars were removed. The skin was closed using interrupted 3-0 Vicryl suture. Dermabond dressing were applied. The patient tolerated the procedure well.
[2020-05-31 09:46] VITALS: TEMP 97
[2020-05-31 11:35] VITALS: BP 103/65; PULSE 69; RESP 18
== END 2020-05-31 11:45 | disposition home or self-care (01) ==
LOC: OR 07:30
PROVIDERS: ATTEND Surgery
DX: K80.10 Calculus of gallbladder with chronic cholecystitis without obstruction (principal); K08.89 Other specified disorders of teeth and supporting structures; F17.210 Nicotine dependence, cigarettes, uncomplicated; Z82.5 Family history of asthma and other chronic lower respiratory diseases; Z80.9 Family history of malignant neoplasm, unspecified
CPT/HCPCS: 47562; 81025; 88304; J2250; J1644; J1100; J2710; J0690; J2405; J2001; J3010; J1885; J0330; J2704

== ENCOUNTER → 2020-09-28 | Outpatient (CLI) | payer OTHER ==
[2020-09-28 15:17] LABS: Basophils % (A) 0 %; Eosinophils # (A) 0.2 k/uL (0-0.7); Eosinophils % (A) 2 %; HCT 40.4 % (34.0-46.0); Lymphocytes # (A) 1.6 k/uL (1.0-4.8); Lymphocytes % (A) 17 %; MCH 33.4 pg (25.0-35.0); MCHC 34.6 g/dL (31.0-37.0); MCV 96.5 fL (80.0-100.0); Mean Platelet Volume 6.7; Monocytes # (A) 0.5 k/uL (0-1.0); Monocytes % (A) 5 %; Neutrophils # (A) 7.4 k/uL (1.3-7.7); Neutrophils % (A) 76 %; Platelet Count 286 k/uL (150-450); RBC 4.18 m/uL (3.80-5.40); RDW 11.3 % (11.5-15.5); WBC 9.8 k/uL (3.8-10.6)
== END | disposition home or self-care (01) ==
LOC: LABPAT 14:34
PROVIDERS: ATTEND Obstetrics & Gynecology Obstetrics
DX: Z01.812 Encounter for preprocedural laboratory examination (principal); O02.1 Missed abortion; Z3A.00 Weeks of gestation of pregnancy not specified
CPT/HCPCS: 36415; 85025; 86850; 86900; 86901

== ENCOUNTER 2020-09-29 12:37 | Emergency (ER) | payer OTHER ==
[2020-09-29 12:44] VITALS: RESP 18
[2020-09-29 13:53] LABS: Basophils % (A) 0 %; Eosinophils # (A) 0.1 k/uL (0-0.7); Eosinophils % (A) 0 %; HCT 31.7 % (34.0-46.0); Lymphocytes # (A) 0.8 k/uL (1.0-4.8); Lymphocytes % (A) 6 %; MCH 31.8 pg (25.0-35.0); MCHC 32.6 g/dL (31.0-37.0); MCV 97.4 fL (80.0-100.0); Mean Platelet Volume 6.8; Monocytes # (A) 0.3 k/uL (0-1.0); Monocytes % (A) 2 %; Neutrophils # (A) 12.9 k/uL (1.3-7.7); Neutrophils % (A) 91 %; Platelet Count 276 k/uL (150-450); RBC 3.25 m/uL (3.80-5.40); RDW 11.9 % (11.5-15.5); WBC 14.1 k/uL (3.8-10.6)
[2020-09-29 14:05] LABS: HGB 10.3 gm/dL (11.4-16.0)
[2020-09-29] MEDS ORDERED: SODIUM CHLORIDE 0.9% 1,000 ML IV ONE (14:20)
--- NOTE | 2020-09-29 14:26 | ED ---
General Adult HPI - General Chief complaint: Vaginal Bleeding Stated complaint: Miscarriage Source: patient, family, EMS, RN notes reviewed Mode of arrival: EMS Limitations: no limitations - History of Present Illness Initial comments: 25-year-old white female patient, presents to the emergency room with complaints of vaginal bleeding and syncope today. Patient was seen by her REPROGRAPHICS ASSOCIATE yesterday and was told there was no heartbeat. Patient was scheduled for a D&C on Saturday. Patient was scheduled to see Dr. Lombardo at [facility] today however patient had the syncopal episode and increased bleeding was told to come to the emergency room. Patient describes pain as cramping 7 out of 10, states when she stands up there is significant amount of blood and feels dizzy. Significant other at bedside states patient has syncopal episode on the way into the emergency room today. Patient is a . Last menstrual period July 14. Patient appears pale, tachycardic at 102 blood pressure 98/56. Patient is afebrile at 98.3. Patient is a pack-a-day smoker. Denies any other medical history. -: days(s) (2) Severity scale (1-10): 7 Quality: other (Cramping) Consistency: intermittent Improves with: none Worsens with: other (Standing) Associated Symptoms: fever/chills, syncope - Related Data Previous Rx's Medication Instructions Recorded Acetaminophen Tab [Tylenol] 650 mg PO Q6H #30 tab 05/31/20 Docusate [Colace] 100 mg PO BID #20 capsule 05/31/20 Ibuprofen [Motrin] 600 mg PO Q6HR PRN #40 tab 05/31/20 oxyCODONE HCL [OxyIR] 5 mg PO Q4H PRN 3 Days #18 tab 05/31/20 Allergies Allergy/AdvReac Type Severity Reaction Status Date / Time No Known Allergies Allergy Verified 09/29/20 12:40 Review of Systems ROS Statement: Those systems with pertinent positive or pertinent negative responses have been documented in the HPI. ROS Other: All systems not noted in ROS Statement are negative. Past Medical History Past Medical History: No Reported History History of Any Multi-Drug Resistant Organisms: None Reported Past Surgical History: Cholecystectomy Past Anesthesia/Blood Transfusion Reactions: No Reported Reaction Past Psychological History: No Psychological Hx Reported Smoking Status: Current every day smoker Past Alcohol Use History: Occasional Past Drug Use History: None Reported - Past Family History Mother Family Medical History: Asthma Father Family Medical History: Cancer General Exam Limitations: no limitations General appearance: alert Head exam: Present: atraumatic, normocephalic, normal inspection Eye exam: Present: normal appearance, PERRL, EOMI. Absent: scleral icterus, conjunctival injection, periorbital swelling Pupils: Present: normal accommodation ENT exam: Present: normal exam, mucous membranes moist Neck exam: Present: normal inspection, full ROM. Absent: tenderness, meningismus, lymphadenopathy, thyromegaly Respiratory exam: Present: normal lung sounds bilaterally. Absent: respiratory distress, wheezes, rales, rhonchi, stridor, chest wall tenderness, accessory muscle use, decreased breath sounds Cardiovascular Exam: Present: regular rate, normal rhythm, normal heart sounds. Absent: systolic murmur, diastolic murmur, rubs, gallop, clicks GI/Abdominal exam: Present: soft, tenderness, normal bowel sounds. Absent: distended, guarding, rebound, rigid Rectal exam: Present: deferred Extremities exam: Present: normal inspection, full ROM, normal capillary refill. Absent: tenderness, pedal edema, joint swelling, calf tenderness Back exam: Present: normal inspection. Absent: full ROM, tenderness, CVA tenderness (R), CVA tenderness (L), muscle spasm, paraspinal tenderness, vertebral tenderness Neurological exam: Present: alert, oriented X3, CN II-XII intact Psychiatric exam: Present: normal affect, normal mood, anxious Skin exam: Present: warm, dry, intact, normal color, pallor. Absent: rash, cyanosis, diaphoretic, erythema, petechiae, mottled Course Vital Signs 09/29/20 09/29/20 09/29/20 12:40 14:55 15:46 Temperature 98.3 F Pulse Rate 102 H 82 82 Respiratory 18 18 18 Rate Blood Pressure 98/56 102/51 95/46 O2 Sat by Pulse 100 97 100 Oximetry - Reevaluation(s) Reevaluation #1: 09/29/20 15:51 Patient states she is feeling better after 1 L normal saline bolus. States bleeding has slowed significantly and no longer having cramps. Patient able to sit up on the cart without complaints of dizziness and she is no longer pale, but pink warm and dry. Patient states she feels like she can be discharged home and follow up with her primary care doctor tomorrow as scheduled. Will consult with REPROGRAPHICS ASSOCIATE. Time: 15:51 Medical Decision Making - Medical Decision Making Hemoglobin and hematocrit 10.3 and 31 respectively, yesterday she was 14 and 40 respectively. Ultrasound shows no gestational sac likely complete . Patient states feels much better after 1 L saline bolus. Cramping has resolved and bleeding is minimal. Abdomen is soft and nontender. Blood pressures 102/51, heart rate of 82, oxygen saturation 97%. Patient is comfortable being discharged home and following up with primary care doctor next week. Spoke with Dr. Lombardo, patient's REPROGRAPHICS ASSOCIATE , who was also agreeable to patient being discharged and following up with the office next week. Patient will be directed to take [id number]-[id number] iron twice a day along with her vitamins and Motrin as needed for pain. Patient will also be encouraged to increase fluid intake to minimum of 8 glasses of water a day and return to the emergency room if worsening symptoms. Case discussed with Dr. Diehl - Lab Data Result diagrams: 09/29/20 13:33 09/29/20 14:25 Lab Results 09/29/20 09/29/20 09/29/20 Range/Units 13:33 14:25 14:25 WBC 14.1 H (3.8-10.6) k/uL RBC 3.25 L (3.80-5.40) m/uL Hgb 10.3 L D (11.4-16.0) gm/dL Hct 31.7 L (34.0-46.0) % MCV 97.4 (80.0-100.0) fL MCH 31.8 (25.0-35.0) pg MCHC 32.6 (31.0-37.0) g/dL RDW 11.9 (11.5-15.5) % Plt Count 276 (150-450) k/uL MPV 6.8 Neutrophils % 91 % Lymphocytes % 6 % Monocytes % 2 % Eosinophils % 0 % Basophils % 0 % Neutrophils # 12.9 H (1.3-7.7) k/uL Lymphocytes # 0.8 L (1.0-4.8) k/uL Monocytes # 0.3 (0-1.0) k/uL Eosinophils # 0.1 (0-0.7) k/uL Basophils # 0.0 (0-0.2) k/uL PT 10.4 (9.0-12.0) sec INR 1.0 (<1.2) Sodium 135 L (137-145) mmol/L Potassium 4.2 (3.5-5.1) mmol/L Chloride 107 (98-107) mmol/L Carbon Dioxide 21 L (22-30) mmol/L Anion Gap 7 mmol/L BUN 8 (7-17) mg/dL Creatinine 0.58 (0.52-1.04) mg/dL Est GFR (CKD-EPI)AfAm >90 (>60 ml/min/1.73 sqM) Est GFR (CKD-EPI)NonAf >90 (>60 ml/min/1.73 sqM) Glucose 108 H (74-99) mg/dL Calcium 8.7 (8.4-10.2) mg/dL Total Bilirubin 0.5 (0.2-1.3) mg/dL AST 21 (14-36) U/L ALT 10 (4-34) U/L Alkaline Phosphatase 43 (38-126) U/L Total Protein 5.8 L (6.3-8.2) g/dL Albumin 3.3 L (3.5-5.0) g/dL Disposition Clinical Impression: Complete Disposition: HOME SELF-CARE Condition: Fair Instructions (If sedation given, give patient instructions): Miscarriage (ED) Additional Instructions: Motrin as needed for pain and cramps and increase fluid intake to 8 glasses of water a day. Take bmki-chk-swnixig iron twice a day (you can take Slow Fe) in addition to vitamins. Follow-up with Dr. Lombardo next week. Is patient prescribed a controlled substance at d/c from ED?: No Referrals: Anny Valentine DO [Primary Care Provider] - 1-2 days Luciana Lombardo DO [Doctor of Osteopathic Medicine] - 1-2 days Time of Disposition: 16:03
[2020-09-29 14:46] LABS: ALT 10 U/L (4-34); AST 21 U/L (14-36); African American GFR (CKD) >90 (>60 ml/min/1.73 sqM); Albumin 3.3 g/dL (3.5-5.0); Alkaline Phosphatase 43 U/L (38-126); Anion Gap 7 mmol/L; Blood Urea Nitrogen 8 mg/dL (7-17); Calcium 8.7 mg/dL (8.4-10.2); Carbon Dioxide 21 mmol/L (22-30); Chloride 107 mmol/L (98-107); Glucose 108 mg/dL (74-99); Non-African American GFR(CKD) >90 (>60 ml/min/1.73 sqM); Potassium 4.2 mmol/L (3.5-5.1); Sodium 135 mmol/L (137-145); Total Bilirubin 0.5 mg/dL (0.2-1.3); Total Protein 5.8 g/dL (6.3-8.2)
[2020-09-29 14:47] LABS: Prothrombin Time 10.4 sec (9.0-12.0)
--- NOTE | 2020-09-29 15:04 | US ---
EXAMINATION TYPE: Transabdominal DATE OF EXAM: 09/29/2020 2:47 PM COMPARISON: NONE CLINICAL HISTORY: bleeding. pt is bleeding, heavier today, no heart tones detected at office yesterda y, EXAM PERFORMED: OBTA EXAM MEASUREMENTS: GESTATIONAL AGE / DATING Physician Established: Not yet established Dates by LMP: (11 weeks/0 days) EDC: 04/20/2020 Dates by First Scan: No previous this is first scan Dates by Current Scan for: N/A MATERNAL ANATOMY Uterus: 9.1 x 6.2 x 5.2cm Endometrium: 2.6cm with no increased vascularity Right Ovary: 2.9 x 2.1 x 1.8cm Left Ovary: 2.1 x 1.5 x 1.5cm Post CDS / Adnexa: wnl Presence of free fluid: no Presence of corpus luteal cyst: not seen Presence of subchorionic bleed: no GESTATION / SURVEY Date of LMP: 07/14/2020 IMPRESSION: There is no intrauterine gestational sac identified. The endometrium is thickened measuring up to 2.6 cm. These findings are nonspecific. Very early gestational age too small to be seen is a possibility versus ectopic versus in progress are the most likely etiologies. Please correlat e with patient's clinical scenario with quantitative beta hCG values with repeat imaging and laborato ry values, as clinically indicated.
[2020-09-29 17:01] VITALS: BP 110/62; PULSE 800; TEMP 98
== END 2020-09-29 17:00 | disposition home or self-care (01) ==
LOC: EC 12:37
DX: O03.9 Complete or unspecified spontaneous abortion without complication (principal); Z3A.11 11 weeks gestation of pregnancy
CPT/HCPCS: 36415; 76801; 80053; 84702; 85025; 85610; 96360; 96361; 99284